=== PATIENT | female | born 1985 | race Caucasian/White ===

== ENCOUNTER 2016-11-20 09:26 | Emergency (ER) | payer OTHER ==
[~2016-11-20] VITALS: Ht 167.6 cm; Wt 61.2 kg
--- NOTE | 2016-11-20 10:04 | ED SKIN/ALLERGY COMPLAINT ---
History of Present Illness General Chief Complaint: Allergy Symptoms Stated Complaint: "HIVES" [id number], SWOLLEN LIPS THIS MORNING Source: patient Exam Limitations: no limitations Vital Signs & Intake/Output Vital Signs & Intake/Output Vital Signs Date Time Temp Pulse Resp B/P B/P Pulse O2 O2 Flow FiO2 Mean Ox Delivery Rate 11/20 1105 98.4 93 20 153/81 99 Room Air 11/20 1045 100 Room Air 11/20 0930 98.2 112 16 136/86 98 Room Air Allergies Coded Allergies: NO KNOWN ALLERGIES (03/12/11) Triage Note: 31 Y/O FEMALE C/O HIVES X 2 MONTHS - WORSENING OVER THE LAST DAY. DENIES KNOWN SOURCE. SMALL RED HIVES NOTED TO EXPOSED SKIN. HAS NOT TAKEN BENADRYL FOR SAME. NO RESPIRATORY DISTRESS NOTED. Triage Nurses Notes Reviewed? yes : No Patient currently breastfeeds: No HPI: 31 yo F presenting with Hives. Waxing and waning diffuse pruritic macules to extremities, torso x 2 months, worse in the past 2-3 days, more pruitic, mild pain since this AM, no treatments at home. Woke up this morning (3:00 AM) with itchy throat, no sensation of swelling or shortness of breath, completely resolved currently. Denies fevers, chills, chest pain, palpitations, wheezing, N /V, neurologic Sx. Evaluated by medical clerk earlier this week, started on fexofenadine BID, did not take today, "allergy testing" preformed, scheduled for follow-up early next week. (RAEGAN YODER,JAYCEE) Past History Travel History Traveled to [place] past 21 day No Medical History Any Pertinent Medical History? 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 No (RAEGAN YODER,JAYCEE) Review of Systems Review of Systems Constitutional: Reports: no symptoms. EENTM: Reports: no symptoms. Respiratory: Reports: no symptoms. Denies: short of breath, wheezing. Cardiovascular: Reports: no symptoms. Denies: chest pain, peripheral edema. GI: Reports: no symptoms. Denies: nausea, vomiting. Genitourinary: Reports: no symptoms. Musculoskeletal: Reports: no symptoms. Skin: Reports: rash. Neurological/Psychological: Reports: no symptoms. Hematologic/Endocrine: Reports: no symptoms. Immunologic/Allergic: Reports: no symptoms. All Other Systems: Reviewed and Negative (RAEGAN YODER,JAYCEE) Physical Exam Physical Exam General Appearance: well developed/nourished, no apparent distress Head: atraumatic, normal appearance Eyes: Bilateral: normal appearance. Ears, Nose, Throat: normal pharynx, normal ENT inspection Neck: normal inspection, full range of motion Respiratory: normal breath sounds, no respiratory distress Cardiovascular: regular rate/rhythm Comments: General: Well appearing, no distress HEENT: No oropharyngeal or uvular edema Neck: No stridor auscultated Pulmonary: No wheezes auscultated Abdomen: Soft, non-TTP throughout Skin: Diffuse macular wheals to arms, torso, abdomen, back, legs, no significant erythema suggestive of secondary infection (JAYCEE CARLIN MD) Progress Differential Diagnosis: abscess/cellulitis, allergic reaction, anaphylaxis, angioedema, asthma, contact dermatitis, drug reaction, erythema multiforme, lyme disease, meningitis/sepsis, piyriasis rosea, RMSF, scarlet fever, shingles, syphilis/gonococcemia, toxic shock syndrome, urticaria Plan of Care: Current Medications Sig/Shavon Start time Last Medication Dose Stop Time Status Admin Dexamethasone 10 MG ONCE ONE 11/20 1030 [facility] (Decadron) 11/20 1031 Loratadine 10 MG ONCE ONE 11/20 1030 [facility] (Claritin) 11/20 1031 Physician MDM: 31 yo F presenting with diffuse urticarial lesions x 2 months, worse in the last 2-3 days. VSS, HR 80s during exam (reportedly tachycardic in triage), skin exam as above. DDx: Urticaria, less likely erythema multiforme, low concern for cellulitis, anaphylaxis, TEN, SJS, DRESS. Loraditine given in ED (patient requested non-drowsy H1 john). Dexamethasone given, patient counseled not to breastfeed for duration of medication effect. Discharged with return to care precautions, plan to f/u with medical clerk as scheduled for further evaluation. The plan of care was discussed with the patient who expressed agreement and understanding. (JAYCEE CARLIN MD) Departure Departure Disposition: HOME OR SELF CARE Condition: Stable Clinical Impression Primary Impression: Urticaria Referrals: PATIENT HAS NO PRIMARY CARE DR (PCP/Family) Additional Instructions: Continue camilla as prescribed by medical clerk. Follow up with medical clerk as scheduled for further evaluation. Return to the ED for any new, worsening, or concerning symptoms. Departure Forms: Customer Survey General Discharge Information (JAYCEE CARLIN MD) PA/SPECIAL EDUCATION ASSISTANT Co-Sign Statement Statement: ED Attending supervision documentation- [] I saw and evaluated the patient. I have also reviewed all the pertinent lab results and diagnostic results. I agree with the findings and the plan of care as documented in the PA's/SPECIAL EDUCATION ASSISTANT's documentation. [X] I have reviewed the ED Record and agree with the PA's/SPECIAL EDUCATION ASSISTANT's documentation. [] Additions or exceptions (if any) to the PAs/SPECIAL EDUCATION ASSISTANT's note and plan are summarized below: [] (JARON CHOWDHURY DO
[2016-11-20 11:05] VITALS: BP 153/81
== END 2016-11-20 11:35 ==
LOC: ERH 09:26
DX: L50.9 Urticaria, unspecified (principal)
CPT/HCPCS: 96372